=== PATIENT | female | born 1990 | race Caucasian/White ===

== ENCOUNTER 2018-12-15 12:50 | Day surgery (SDC) | payer BC ==
[2018-12-15] MEDS ORDERED: PROPOFOL 60 ML (16:20)
[2018-12-15] MEDS ORDERED: LIDOCAINE 2% (SDV) 5 ML INJ (16:20)
== END 2018-12-15 17:20 | disposition home or self-care (01) ==
LOC: GIL 12:50
DX: K29.30 Chronic superficial gastritis without bleeding (principal); K64.8 Other hemorrhoids; R63.4 Abnormal weight loss
CPT/HCPCS: 43239; 84703; 88305; 88312